=== PATIENT | female | born 1935 | race Caucasian/White ===

== ENCOUNTER 2023-09-27 10:19 | Outpatient (CLI) | payer OTHER ==
[~2023-09-27 10:19] MED LIST: AMLODIPINE BESY10 MG; ATACAND16 MG; ORPH100T PO
== END 2023-09-27 10:44 | disposition home or self-care (01) ==
LOC: RAD 10:19
PROVIDERS: ATTEND Internal Medicine
DX: R07.9 Chest pain, unspecified (principal); Z12.31 Encounter for screening mammogram for malignant neoplasm of breast; N60.11 Diffuse cystic mastopathy of right breast; N60.12 Diffuse cystic mastopathy of left breast; G44.89 Other headache syndrome; R07.1 Chest pain on breathing
CPT/HCPCS: 70551

== ENCOUNTER 2023-11-01 13:07 | Outpatient (CLI) | payer OTHER | END 2023-11-01 13:08 | disposition home or self-care (01) | LOC: NUCLEAR 13:07 | DX: Z13.820 Encounter for screening for osteoporosis (principal); M81.0 Age-related osteoporosis without current pathological fracture ==